=== PATIENT | female | born 1955 | race Caucasian/White ===

== ENCOUNTER 2019-09-18 06:35 | Outpatient (CLI) | payer BC, SELFPAY ==
--- NOTE | ~2019-09-18 | MR_ITS ---
EXAMINATION: MR cervical spine wo con EXAM DATE: 09/18/2019 07:52 INDICATION: Cervicalgia. TECHNIQUE: Multi-sequential, multiplanar MR images of the cervical spine were obtained without contra st. Axial T2, axial T2 MERGE sequence. Sagittal T1, T2, T2 fat saturation images also obtained. Com parison is made to prior examination from 12/27/2011. FINDINGS: Moderate to severe disc disease at C5-6 and C6-7, moderate at C7-T1, mild to moderate at C 3-4. The vertebral bodies are aligned in the AP dimension. There are no suspicious marrow signal abno rmalities. The spinal cord signal intensity and intrinsic morphology is normal. Cervicomedullary junc tion is normal in appearance. Paraspinal soft tissue is unremarkable. Level by level evaluation: C2-C3: Disc does not extend beyond the endplate margin. Uncovertebral joint arthropathy: None. Facet joint arthropathy: Moderate bilateral. Neural foraminal stenosis: No stenosis. Central canal stenosis: No stenosis. C3-C4: There is a minimal diffuse disc bulge. Uncovertebral joint arthropathy: Mild left. Facet joint arthropathy: Moderate left, mild to moderate right. Neural foraminal stenosis: No stenosis. Central canal stenosis: No stenosis. C4-C5: There is a mild diffuse disc bulge asymmetric to the left Uncovertebral joint arthropathy: Mild to moderate left, mild right. Facet joint arthropathy: Severe left, mild to moderate right. Neural foraminal stenosis: Moderate to severe left. Central canal stenosis: Mild. C5-C6: There is a mild to moderate diffuse disc bulge. Uncovertebral joint arthropathy: Moderate to severe right, moderate left. Facet joint arthropathy: Moderate bilateral. Neural foraminal stenosis: Moderate to severe bilateral. Central canal stenosis: Mild to moderate . Central canal measures 7 mm in mid sagittal AP diameter . C6-C7: There is a mild diffuse disc bulge. Uncovertebral joint arthropathy: Mild to moderate bilateral. Facet joint arthropathy: Mild to moderate right, mild left. Neural foraminal stenosis: Mild to moderate bilateral. Central canal stenosis: Mild. C7-T1: There is a mild diffuse disc bulge. Uncovertebral joint arthropathy: Moderate left, mild to moderate right. Facet joint arthropathy: Moderate right, mild left. Neural foraminal stenosis: Moderate bilateral. Central canal stenosis: Mild. Compared to 2011, there has been noticeable interval progression in spondylosis. IMPRESSION: 1. Moderate to severe cervical spondylosis. Reviewed, dictated and finalized at location B.
--- NOTE | ~2019-09-18 | XR_ITS ---
XR cervical spine min 6V 09/18/2019 07:02 Indication: Cervicalgia. Procedure: 6 view cervical spine including flexion/extension Comparison: No prior studies for comparison. Findings: There is disc narrowing at C5-6 and C6-7. Vertebral body heights are maintained. No acute f racture or traumatic malalignment. No significant alteration of alignment with flexion/extension. No prevertebral soft tissue swelling. There is multilevel facet and uncinate hypertrophy. Lung apices ar e normal. Odontoid process within normal limits. Impression: 1: Moderate cervical spondylosis. Reviewed, dictated and finalized at location A. Impression: 1: Moderate cervical spondylosis.
== END 2019-09-18 06:36 | disposition home or self-care (01) ==
PROVIDERS: PCP Physician Assistant; Visit Provider Nurse Practitioner Family
DX: M47.892 Other spondylosis, cervical region (principal)
CPT/HCPCS: 72052; 72141

== ENCOUNTER 2019-10-06 09:55 | Outpatient (CLI) | payer BC, SELFPAY ==
--- NOTE | 2019-10-06 | ECG_ITS ---
Measurements Intervals [place] Rate: 84 P: 77 [place]: 147 QRS: -3 QRSD: 84 T: 58 QT: 354 QTc: 419 Interpretive Statements SINUS RHYTHM POSSIBLE LEFT ATRIAL ENLARGEMENT INCOMPLETE RIGHT BUNDLE BRANCH BLOCK BASELINE ARTIFACT- I, III, AVR, AVL, AVF BORDERLINE ECG Electronically Signed On 10-06-2019 10:55:53 CDT by Corey Lorenz D.O.
[2019-10-06 10:25] LABS: Hematocrit 37.7 % (37.0-47.0); Hemoglobin 12.7 g/dL (12.0-15.0)
[2019-10-06 10:38] LABS: Albumin Level 3.8 g/dL (3.5-5.1); Estimated Glomerular Filt Rate > 60; Glucose 93 mg/dL (65-105)
[2019-10-06 10:45] LABS: Hemoglobin A1C 5.4 % (<5.7)
[2019-10-06 11:47] LABS: Urine Cotinine NEGATIVE
== END 2019-10-06 09:56 | disposition home or self-care (01) ==
PROVIDERS: PCP Physician Assistant; Visit Provider Orthopaedic Surgery
DX: Z01.818 Encounter for other preprocedural examination (principal); M17.11 Unilateral primary osteoarthritis, right knee; I45.10 Unspecified right bundle-branch block
CPT/HCPCS: 36415; 80307; 82040; 82565; 82947; 83036; 85014; 85018; 93005

== ENCOUNTER 2019-10-15 07:51 | Outpatient (CLI) | payer BC, SELFPAY ==
[2019-10-15 08:54] LABS: Basophils Absolute Auto 0.1 K/mm3 (0.0-0.1); Eosinophils Absolute Auto 0.5 K/mm3 (0-0.3); Eosinophils Percent Auto 9.3 % (0-4.4); Hematocrit 40.9 % (37.0-47.0); Hemoglobin 13.4 g/dL (12.0-15.0); Immature Granulocyte Absolute 0.02 K/mm3 (0.00-0.031); Immature Granulocyte Percent A 0.4 % (0-0.5); Lymphocytes Absolute Auto 1.19 K/mm3 (0.9-3.2); Lymphocytes Percent Auto 24.1 % (18.3-44.2); Mean Corpuscular HGB Conc 32.8 g/dl (32-36); Mean Corpuscular Hemoglobin 29.1 pg (26-34); Mean Corpuscular Volume 88.9 fl (80-100); Mean Platelet Volume 9.2 fl (7.4-10.4); Monocytes Absolute Auto 0.5 K/mm3 (0.1-0.6); Monocytes Percent Auto 9.5 % (2.6-8.5); Neutrophils Absolute Auto 2.8 K/mm3 (1.3-6.7); Neutrophils Percent Auto 55.7 % (45.5-73.1); Platelet Count Result 255 k/mm3 (150-375); Red Cell Distribution Width 12.8 % (11.5-14.5); White Blood Count 4.9 K/mm3 (4.5-10.0)
== END 2019-10-15 07:52 | disposition home or self-care (01) ==
LOC: ANHSURGERY 07:53
PROVIDERS: PCP Physician Assistant; Visit Provider Orthopaedic Surgery
DX: M17.11 Unilateral primary osteoarthritis, right knee (principal)
CPT/HCPCS: 36415; 85025; 87081

== ENCOUNTER 2019-11-13 02:05 | Outpatient (CLI) | payer BC, SELFPAY ==
[2019-11-13 18:23] LABS: SARS-CoV-2 RNA PCR Negative
== END 2019-11-13 02:06 | disposition home or self-care (01) ==
LOC: ANHCOVIDDT 02:06
PROVIDERS: PCP Physician Assistant; Visit Provider Orthopaedic Surgery
DX: Z01.812 Encounter for preprocedural laboratory examination (principal); Z20.828 Contact with and (suspected) exposure to other viral communicable diseases
CPT/HCPCS: 87635; C9803; U0003

== ENCOUNTER 2019-11-15 00:40 | Day surgery (SDC) | payer BC, SELFPAY ==
[2019-10-15 08:02] VITALS: BMI 23.3
[2019-10-15 08:42] VITALS: BP 142/82; PULSE 84; RESP 18; TEMP 36.7; O2SAT 100
--- NOTE | 2019-11-14 11:17 | WPDANESEPPF ---
Anes - Initial Pre Proc Eval Procedure: Operation Date: 11/15/19 07:30 Proposed Procedures p Right Total Knee Arthroplasty - Satnam Arango MD Date/Time: 11/14/19 11:17 Surgeon: Satnam Arango MD Pre Op Diagnosis: Right Knee OA Patient Data Age: 64 Gender: F Height: 1.6 m Weight: 59.6 kg Last Vital Signs Temp 36.7 C 10/15/19 08:42 Pulse 84 10/15/19 08:42 Resp 18 10/15/19 08:42 BP 142/82 H 10/15/19 08:42 Pulse Ox 100 10/15/19 08:42 Allergies Allergy/AdvReac Type Severity Reaction Status Date / Time Penicillins Allergy Severe THROAT Verified 11/15/19 06:20 SWELLING,RASH Home Medications Medication Instructions Recorded Confirmed Type buspirone 15 mg tablet 30 mg PO BID tablet 07/12/19 11/15/19 History cyclobenzaprine 10 mg tablet 5 mg PO TID tablet 07/12/19 11/15/19 History gabapentin 300 mg capsule 300 mg PO BID 07/12/19 11/15/19 History meloxicam 7.5 mg tablet 7.5 mg PO DAILY 07/12/19 11/15/19 History multivitamin 1 tablet PO DAILY 07/12/19 11/15/19 History pantoprazole 40 mg tablet,delayed 40 mg PO QAM #90 tablet 10/11/19 11/15/19 Rx release hydrocodone bitartrate [Zohydro ER] 10 mg PO Q12H 10/15/19 11/15/19 History montelukast [Singulair] 10 mg PO HS 10/15/19 11/15/19 History Patient hx anesthesia problems: none Family hx anesthesia problems: none PMFSH Past Medical History Medical History (Updated 11/14/19 @ 11:17 by Audie Queen DO) Anemia Anxiety Asthma Chronic, continuous use of opioids hydrocodone 10 years Depression GERD (gastroesophageal reflux disease) Hypercholesterolemia Insomnia Osteoarthrosis Social History Social History Smoking packs per day: 0.5 Smoking cigarettes per day: 10.0 Years smoked: 2 Smoking pack-years: 1.00 Smoking status: Former smoker Tobacco type: cigarettes Second hand tobacco smoke exposure: Yes (SIGNIFICANT OTHER) Smoking end date: 03/21/72 Additional smoking assessment comments: DENIES ANY FORM OF TOBACCO USE Alcohol intake: never Substance use: never Living arrangements: with family Spiritual care concerns: No Anes - Eval Final PreProcedure Day of Procedure 11/14/19 11:17 Patient weight: normal Heart: regular rate and rhythm Lungs: clear to auscultation and normal air movement Airway: Mallampati scale class II Neurological: alert and oriented Last oral intake: >/= 8 hours ASA classification: III Emergent: no Anesthetic plan: proceed Anesthesia type and monitoring: general GIVS and standard monitoring Informed Consent: The patient's anesthetic plan and its attendant risks and benefits were discussed with the patient/family/POA. Questions were solicited and answers provided to the satisfaction of the patient/family/POA.
--- NOTE | 2019-11-14 11:32 | WPDANESPNB ---
Anes - Peripheral Nerve Block Date/Time: 11/14/19 11:32 I have discussed with the patient/family/POA the placement of a peripheral nerve block for post-operative pain management, including associated risks, benefits, complications, and side effects. Alternative methods of post-operative analgesia were detailed. Questions were solicited and answers provided to the satisfaction of the patient/family/POA. Time-Out: A pre-procedural Time-Out was completed immediately before starting the procedure and confirmed: Patient Identification, Site, Procedure, Patient Position and the Availability of Requisite Equipment. Clinical Indications: Acute post-operative pain management requested by the operative surgeon. Nerve Block Insertion Note Anes-nerve block: adductor canal right Patient position: supine Skin prep: chlorhexidine Needle: 22 gauge, stimulating, insulated echogenic needle. Needle length: 80 mm Technique: ultrasound Injectate: bupivacaine 0.5% with epi 5 mcg/ml (30cc) Observations: tolerated well Complications: none Procedure start time:: 718 Procedure end time:: 721
[2019-11-15] VITALS (12 sets, daily range): BP systolic 100–143; BP diastolic 66–98; PULSE 74–98; RESP 12–18; TEMP 36.1–37.1; O2SAT 97–100
--- NOTE | ~2019-11-15 | XR_ITS ---
EXAMINATION: XR knee RT 2V DATE: 11/15/2019 10:03 INDICATION: Total right knee arthroplasty. Postop. TECHNIQUE: 2 views of right knee were obtained. COMPARISON: Right knee radiographs 09/08/2018 FINDINGS: There is a total right knee arthroplasty with patellar resurfacing. Tibia demonstrate 8 deg puma posterior angulation with respect to tibial component. No fracture. There is gas in the knee rita nt and soft tissues, consistent with recent surgery. IMPRESSION: 1. New total right knee arthroplasty. Reviewed, dictated and finalized at location B.
[2019-11-15] MEDS: ACETAMINOPHEN 500 MG TABLET 1000 MG PO (06:35)
[2019-11-15] MEDS: LACTATED RINGERS 1,000 ML 30 ML IV CONT ×2 (06:40→09:52)
[2019-11-15] MEDS: KETOROLAC 15 MG/ML VIAL (*BKC) IV PUSH (06:47)
[2019-11-15] MEDS: TRANEXAMIC ACID 1,000MG/ISO100 1,000 MG/100 ML BAG 200 MG IVPB (06:48)
--- NOTE | 2019-11-15 07:18 | WPDHPUPDATE1 ---
History and Physical Update Update Date/Time: 11/15/19 07:18 History and Physical has been reviewed, including an updated exam of the patient. There are NO changes in the patient's condition. Risks, benefits, and alternatives have been discussed and questions answered. Patient agrees to proceed with procedure.
[2019-11-15] MEDS: CLINDAMYCIN 900 MG/NS 50 ML 900 MG/50 ML PIGGYBACK 50 MG IVPB (07:35)
[2019-11-15] MEDS: ceFAZolin SODIUM 1 GM VIAL IV PUSH (08:03)
--- NOTE | 2019-11-15 09:42 | PM.PROC ---
Procedure Note - Detailed Date of procedure: 11/15/19 Pre-op diagnosis: Right Knee OA Post-op diagnosis: same Procedure performed: Total knee arthroplasty, right. Description of procedure: Sever patellofemoral disease. Patella thin, but adequate for resurfacing. Mild valgus deformity. Lateral release required including popliteus. Femur downsized 1.5 mm. 4 degree external rotation of the femur. 5 degree distal resection. Significant trochlea dysplasia. Implants: [employer] Triathlon size 2 press-fit femur, size 3 cemented low-profile tibia, 11 mm CR polyethylene insert, 32 mm asymmetric metal backed (Tritanium) patellar component. Anesthesia: GETA and regional (subsartorial nerve block) Surgeon: Satnam Arango MD Estimated blood loss (mL): 100 Tourniquet time (min): 18 Drains: No Pathology: none sent Complications: None Condition: stable Disposition: PACU Findings: OPERATIVE DETAILS: The patient was given a nerve block preoperatively, and then brought to the operating room. A general anesthetic was administered. The leg was prepped and draped in the usual sterile fashion. The limb was elevated and the tourniquet inflated to 300 mmHg during initial exposure, and cementation. A longitudinal incision was created along the medial border of the patella and patellar tendon, and a minimally invasive optimized mid-vastus approach to the knee was performed. No medial release was taken. The knee was then flexed. The osteophytes were carefully removed. The intramedullary guide was placed in the femoral canal. The distal femoral resection was then taken with the oscillating saw. The collateral ligaments were carefully protected. The tibia was carefully exposed. The jig was applied, and the proximal tibia was resected according to preoperative plan. The knee was balanced in extension. Appropriate releases were taken where needed. The anterior cruciate ligament and meniscal remnants were removed. The posterior cruciate ligament was preserved. The patella was measured. Patellar resection was carried out with the oscillating saw. The lug holes drilled. The femur was sized and rotation assessed using a combination of gap balancing, posterior referencing, and the AP axis. The 4 in 1 cutting block was used to finish the femoral cuts after equal gaps were assured. The lug holes were drilled. The osteophytes were carefully removed from the back of the knee. The knee was copiously irrigated with antibiotic solution periodically throughout the procedure. The meniscal remnants were removed. The spacer block was used to confirm equal flexion and extension gaps. Lateral release was performed. The tibia was sized and broached. The bony surfaces were prepared for cementing with pulsatile lavage. The real tibial component was cemented into position followed by press fitting the femoral component. Excess cement was carefully removed. The patella component was press-fit. Patellar tracking was carefully assessed. No additional releases were required. The wound was closed with #1 Vycril suture, #2 Quill suture, 0-Quill suture, and 2-0 Quill suture followed by Steri-Strips. A sterile bulky dressing was applied. Meticulous hemostasis was maintained throughout the procedure. There were no complications. The patient was extubated and brought to the recovery room in stable condition after the application of sterile dressing with Nba bandage.
--- NOTE | 2019-11-15 10:01 | SUR.PHASEI ---
1000 2 VIEWS OF XRAYS TAKEN OF RT KNEE.
[2019-11-15] MEDS: CYCLOBENZAPRINE HCL 5 MG TABLET PO ×2 (12:04→18:16)
--- NOTE | 2019-11-15 16:31 | PHAR ---
Home med verified: Hydrocodone 10mg ER Take 1 capsule by mouth Q12hr
[2019-11-15] MEDS: ASPIRIN 81 MG ENTERIC TABLET PO (18:15)
[2019-11-15] MEDS: busPIRone HCL 10 MG TABLET 30 MG PO (18:16)
[2019-11-15] MEDS: DOCUSATE SODIUM 100 MG CAPSULE PO (18:16)
[2019-11-15] MEDS: GABAPENTIN 300 MG CAPSULE PO (18:23)
[2019-11-15] MEDS: MONTELUKAST SODIUM 10 MG TABLET PO (21:25)
[2019-11-16] VITALS: BP 100/53; PULSE 74; RESP 18; TEMP 36.1; O2SAT 100
[2019-11-16 01:30] VITALS: BP 133/74; PULSE 79
[2019-11-16 04:55] VITALS: BP 122/70; PULSE 73; RESP 20; TEMP 36.1; O2SAT 100
[2019-11-16 05:54] LABS: Basophils Percent Auto 0.2 % (0.2-1.2); Eosinophils Absolute Auto 0.2 K/mm3 (0-0.3); Eosinophils Percent Auto 2.4 % (0-4.4); Hematocrit 31.9 % (37.0-47.0); Hemoglobin 10.5 g/dL (12.0-15.0); Immature Granulocyte Absolute 0.03 K/mm3 (0.00-0.031); Immature Granulocyte Percent A 0.4 % (0-0.5); Lymphocytes Absolute Auto 1.41 K/mm3 (0.9-3.2); Lymphocytes Percent Auto 16.7 % (18.3-44.2); Mean Corpuscular HGB Conc 32.9 g/dl (32-36); Mean Corpuscular Hemoglobin 29.5 pg (26-34); Mean Corpuscular Volume 89.6 fl (80-100); Mean Platelet Volume 9.4 fl (7.4-10.4); Monocytes Absolute Auto 0.7 K/mm3 (0.1-0.6); Monocytes Percent Auto 8.5 % (2.6-8.5); Neutrophils Absolute Auto 6.1 K/mm3 (1.3-6.7); Neutrophils Percent Auto 71.8 % (45.5-73.1); Platelet Count Result 223 k/mm3 (150-375); Red Blood Count 3.56 M/mm3 (4.2-5.4); Red Cell Distribution Width 13.1 % (11.5-14.5); White Blood Count 8.4 K/mm3 (4.5-10.0)
[2019-11-16 06:09] LABS: Anion Gap 4 mmol/L (8-16); Blood Urea Nitrogen 10 mg/dL (7-17); Calcium 8.5 mg/dL (8.4-10.2); Carbon Dioxide 25 mmol/L (22-30); Chloride 106 mmol/L (98-107); Estimated CRCL calculation 57 ml/min; Estimated Glomerular Filt Rate > 60; Glucose 100 mg/dL (65-105); Potassium 4.2 mmol/L (3.4-5.0); Sodium 135 mmol/L (137-145)
[2019-11-16] MEDS: GABAPENTIN 300 MG CAPSULE PO (08:16)
[2019-11-16] MEDS: DOCUSATE SODIUM 100 MG CAPSULE PO (08:16)
[2019-11-16] MEDS: CYCLOBENZAPRINE HCL 5 MG TABLET PO (08:16)
[2019-11-16] MEDS: busPIRone HCL 10 MG TABLET 30 MG PO (08:16)
[2019-11-16] MEDS: PANTOPRAZOLE 40 MG TABLET PO (09:28)
[2019-11-16] MEDS: MULTIVITAMINS THERAPEUTIC TAB (*BKC) 1 TABLET PO (09:28)
[2019-11-16] MEDS: MELOXICAM 7.5 MG TABLET PO (09:28)
[2019-11-16] MEDS: ASPIRIN 81 MG ENTERIC TABLET PO (09:28)
[2019-11-16 09:59] VITALS: BP 102/66; PULSE 78; RESP 16; TEMP 36.2; O2SAT 100
--- NOTE | 2019-11-16 10:09 | P.PNAN_ITS ---
Anes - Prog Note Post-Op Date/Time: 11/16/19 10:09 Cardiovascular status: normal Respiratory status: normal Airway patency: baseline Mental status: baseline Post-Op hydration status: normal Vital Signs: Last Vital Signs Temp 36.1 C L 11/16/19 04:55 Pulse 73 11/16/19 04:55 Resp 20 11/16/19 04:55 BP 122/70 11/16/19 04:55 Pulse Ox 100 11/16/19 04:55 I/O: Intake & Output 11/15/19 11/16/19 11/16/19 23:59 07:59 15:59 Intake Total 915 500 290 Output Total 300 1000 Balance 615 -500 290 Laboratory Tests 11/16/19 05:46 11/16/19 05:46 11/16/19 11/16/19 05:46 05:46 WBC 8.4 RBC 3.56 L Hgb 10.5 L Hct 31.9 L MCV 89.6 MCH 29.5 MCHC 32.9 RDW 13.1 Plt Count 223 MPV 9.4 Immature Gran % (Auto) 0.4 Neut % (Auto) 71.8 Lymph % (Auto) 16.[address] [place] % (Auto) 8.5 Eos % (Auto) 2.4 Baso % (Auto) 0.2 Lymph # (Auto) 1.41 [place] # (Auto) 0.7 H Eos # (Auto) 0.2 Baso # (Auto) 0.0 Abs Immat Gran (auto) 0.03 Absolute Neuts (auto) 6.1 Absolute Nucleated RBC 0.0 Nucleated RBC % 0.0 Sodium 135 L Potassium 4.2 Chloride 106 Carbon Dioxide 25 Anion Gap 4 L BUN 10 Creatinine 0.70 Estim Creat Clear Calc 57 Estimated GFR > 60 Glucose 100 Calcium 8.5 Post-procedural complaints: none Patient Feedback: Patient satisfied with anesthetic care.
== END 2019-11-16 11:07 | disposition home or self-care (01) ==
LOC: ANHSURGERY 06:05 → ANH2MED 11:00
PROVIDERS: PCP Physician Assistant; Visit Provider Orthopaedic Surgery
PROC: (CPT 27447; principal; 2019-11-15 07:30)
DX: M17.11 Unilateral primary osteoarthritis, right knee (principal); G89.18 Other acute postprocedural pain; F41.9 Anxiety disorder, unspecified; F32.9 Major depressive disorder, single episode, unspecified; K21.9 Gastro-esophageal reflux disease without esophagitis; E78.00 Pure hypercholesterolemia, unspecified; J45.909 Unspecified asthma, uncomplicated; Z79.891 Long term (current) use of opiate analgesic; Z79.899 Other long term (current) drug therapy; Z88.0 Allergy status to penicillin
CPT/HCPCS: 27447; 64447; 36415; 73560; 80048; 85025; 86850; 86900; 86901; 97110; 97116; 97161; 97165; 97530; A9270; C1713; C1776; J0131; J0171; J0690; J1100; J1885; J2250; J2270; J2405; J2704; J2795; J3010; J7120

== ENCOUNTER 2020-09-27 09:35 | Outpatient (CLI) | payer BC, SELFPAY ==
--- NOTE | 2020-09-27 | ECG_ITS ---
Measurements Intervals [place] Rate: 74 P: 68 [place]: 147 QRS: -10 QRSD: 81 T: 42 QT: 377 QTc: 420 Interpretive Statements SINUS RHYTHM POSSIBLE LEFT ATRIAL ENLARGEMENT INCOMPLETE RIGHT BUNDLE BRANCH BLOCK BORDERLINE ECG Electronically Signed On 09-27-2020 15:15:11 CDT by Corey Lorenz D.O.
[2020-09-27 10:14] LABS: Hematocrit 39.5 % (37.0-47.0); Hemoglobin 12.6 g/dL (12.0-15.0)
[2020-09-27 10:25] LABS: Albumin Level 4.2 g/dL (3.5-5.1); Estimated Glomerular Filt Rate > 60; Glucose 89 mg/dL (65-105)
[2020-09-27 10:27] LABS: Hemoglobin A1C 5.3 % (<5.7)
[2020-09-27 11:08] LABS: Urine Cotinine NEGATIVE
== END 2020-09-27 09:36 | disposition home or self-care (01) ==
LOC: ANHLAB 09:37
PROVIDERS: PCP Physician Assistant; Visit Provider Orthopaedic Surgery
DX: Z01.818 Encounter for other preprocedural examination (principal); M17.12 Unilateral primary osteoarthritis, left knee; K21.9 Gastro-esophageal reflux disease without esophagitis; D64.9 Anemia, unspecified; E78.00 Pure hypercholesterolemia, unspecified; G47.00 Insomnia, unspecified
CPT/HCPCS: 80307; 82040; 82565; 82947; 83036; 85014; 85018; 93005

== ENCOUNTER 2020-11-05 11:22 | Outpatient (CLI) | payer BC, SELFPAY ==
[2020-11-05 12:53] LABS: Basophils Percent Auto 0.6 % (0.2-1.2); Eosinophils Absolute Auto 0.3 K/mm3 (0-0.3); Eosinophils Percent Auto 6.5 % (0-4.4); Hematocrit 39.4 % (37.0-47.0); Hemoglobin 12.6 g/dL (12.0-15.0); Immature Granulocyte Absolute 0.01 K/mm3 (0.00-0.031); Immature Granulocyte Percent A 0.2 % (0-0.5); Lymphocytes Absolute Auto 1.18 K/mm3 (0.9-3.2); Lymphocytes Percent Auto 22.6 % (18.3-44.2); Mean Corpuscular Hemoglobin 28.9 pg (26-34); Mean Corpuscular Volume 90.4 fl (80-100); Monocytes Absolute Auto 0.4 K/mm3 (0.1-0.6); Monocytes Percent Auto 7.3 % (2.6-8.5); Neutrophils Absolute Auto 3.3 K/mm3 (1.3-6.7); Neutrophils Percent Auto 62.8 % (45.5-73.1); Platelet Count Result 245 k/mm3 (150-375); Red Blood Count 4.36 M/mm3 (4.2-5.4); Red Cell Distribution Width 13.5 % (11.5-14.5); White Blood Count 5.2 K/mm3 (4.5-10.0)
== END 2020-11-05 11:23 | disposition home or self-care (01) ==
PROVIDERS: PCP Physician Assistant; Visit Provider Orthopaedic Surgery
DX: M17.12 Unilateral primary osteoarthritis, left knee (principal); Z01.818 Encounter for other preprocedural examination
CPT/HCPCS: 36415; 85025; 87081

== ENCOUNTER 2020-11-11 09:59 | Outpatient (CLI) | payer BC, SELFPAY | END 2020-11-11 10:00 | disposition home or self-care (01) | LOC: ANHSURGERY 11-14 09:59 | PROVIDERS: PCP Physician Assistant; Visit Provider Orthopaedic Surgery | DX: M17.12 Unilateral primary osteoarthritis, left knee (principal); Z01.818 Encounter for other preprocedural examination | CPT/HCPCS: 87081 ==

== ENCOUNTER 2020-12-03 10:19 | Outpatient (CLI) | payer BC, SELFPAY ==
[2020-12-03 11:35] LABS: Urine Cotinine NEGATIVE
[2020-12-03 11:44] LABS: Albumin Level 4.3 g/dL (3.5-5.1); Estimated Glomerular Filt Rate > 60; Glucose 100 mg/dL (65-110)
== END 2020-12-03 10:20 | disposition home or self-care (01) ==
LOC: ANHSURGERY 10:21
PROVIDERS: PCP Physician Assistant; Visit Provider Orthopaedic Surgery
DX: M17.12 Unilateral primary osteoarthritis, left knee (principal); Z01.818 Encounter for other preprocedural examination
CPT/HCPCS: 80307; 82040; 82565; 82947; 86850; 86900; 86901

== ENCOUNTER 2020-12-09 01:31 | Day surgery (SDC) | payer BC, SELFPAY ==
[2020-11-05 11:44] VITALS: BP 146/77; PULSE 74; RESP 16; TEMP 37.3; O2SAT 100; BMI 23.8
--- NOTE | 2020-12-08 11:05 | WPDANESEPPF ---
Anes - Initial Pre Proc Eval Procedure: Operation Date: 12/09/20 07:30 Proposed Procedures p Left Total Knee Arthroplasty - Satnam Arango MD Date/Time: 12/08/20 11:05 Surgeon: Satnam Arango MD Pre Op Diagnosis: primary OA left knee Patient Data Age: 65 Gender: F Height: 1.57 m Weight: 59.1 kg Last Vital Signs Temp 37.3 C 11/05/20 11:44 Pulse 74 11/05/20 11:44 Resp 16 11/05/20 11:44 BP 146/77 H 11/05/20 11:44 Pulse Ox 100 11/05/20 11:44 Allergies Allergy/AdvReac Type Severity Reaction Status Date / Time Penicillins Allergy Severe THROAT Verified 12/09/20 06:23 SWELLING,RASH Home Medications Medication Instructions Recorded Confirmed Type cyclobenzaprine 10 mg tablet 10 mg PO TID tablet 07/12/19 12/09/20 History morphine 15 mg tablet,extended 15 mg PO Q12H 12/03/19 12/09/20 History release pantoprazole 40 mg tablet,delayed 40 mg PO QAM #90 tablet 04/09/20 12/09/20 Rx release aspirin [Adult Low Dose Aspirin] 81 mg PO DAILY 11/05/20 12/09/20 History buspirone 30 mg PO BID 11/05/20 12/09/20 History gabapentin 300 mg PO BID 11/05/20 12/09/20 History montelukast 10 mg PO DAILY 11/05/20 12/09/20 History mupirocin 1 applic TOPICAL TID 11/25/20 12/09/20 History Patient hx anesthesia problems: none Family hx anesthesia problems: none PMFSH Past Medical History Medical History Anemia Anxiety Asthma Chronic, continuous use of opioids hydrocodone 10 years Depression GERD (gastroesophageal reflux disease) Hypercholesterolemia Insomnia Osteoarthrosis Surgical History Surgical History History of total right knee replacement (~11/15/19) Family History Family History Mother Family history of diabetes mellitus in first degree relative, Onset Age: 64 Patient's mother is Diabetes mellitus Father Patient's father is Sibling Patient's brother is Social History Social History Smoking packs per day: 0.5 Smoking cigarettes per day: 10.0 Years smoked: 3 Smoking pack-years: 1.50 Tobacco type: cigarettes Second hand tobacco smoke exposure: Yes (SIGNIFICANT OTHER) Smoking end date: 09/18/72 Additional smoking assessment comments: DENIES ANY FORM OF TOBACCO USE Alcohol intake: former Alcohol use details: SOCIAL DRINKER 8-9 YEARS AGO Substance use: never Living arrangements: with family Additional living arrangements comments: S.O., GRANDCHILD, GREAT GRANDCHILD Gender identity (if verbalized by the patient): Female Spiritual care concerns: No Anes - Eval Final PreProcedure Day of Procedure 12/08/20 11:05 Patient weight: normal Heart: regular rate and rhythm Lungs: clear to auscultation and normal air movement Airway: Mallampati scale class II Neurological: alert and oriented Last oral intake: >/= 8 hours ASA classification: III Emergent: no Anesthetic plan: proceed Anesthesia type and monitoring: general LMA Informed Consent: The patient's anesthetic plan and its attendant risks and benefits were discussed with the patient/family/POA. Questions were solicited and answers provided to the satisfaction of the patient/family/POA.
[2020-12-09] VITALS (13 sets, daily range): BP systolic 107–136; BP diastolic 58–94; PULSE 68–87; RESP 10–18; TEMP 36.1–36.3; O2SAT 96–100; BMI 23.8
--- NOTE | ~2020-12-09 | XR_ITS ---
EXAMINATION: XR knee LT 2V DATE: 12/09/2020 10:08 CDT INDICATION: Left total knee arthroplasty TECHNIQUE: 2 views left knee FINDINGS: There is a left total knee arthroplasty in expected position. Subcutaneous gas with fluid and air in the joint are consistent with recent surgery. No evidence of periprosthetic fracture. IMPRESSION: 1. Recent left total knee arthroplasty. Reviewed, dictated and finalized at location A.
[2020-12-09] MEDS: ACETAMINOPHEN 500 MG TABLET 1000 MG PO (06:31)
[2020-12-09] MEDS: LACTATED RINGERS 1,000 ML 30 ML IV CONT ×2 (06:39→09:47)
[2020-12-09] MEDS: TRANEXAMIC ACID 1,000MG/ISO100 1,000 MG/100 ML BAG 200 MG IVPB (06:39)
--- NOTE | 2020-12-09 07:12 | WPDANESPNB ---
Anes - Peripheral Nerve Block Date/Time: 12/09/20 07:12 I have discussed with the patient/family/POA the placement of a peripheral nerve block for post-operative pain management, including associated risks, benefits, complications, and side effects. Alternative methods of post-operative analgesia were detailed. Questions were solicited and answers provided to the satisfaction of the patient/family/POA. Time-Out: A pre-procedural Time-Out was completed immediately before starting the procedure and confirmed: Patient Identification, Site, Procedure, Patient Position and the Availability of Requisite Equipment. Clinical Indications: Acute post-operative pain management requested by the operative surgeon. Nerve Block Insertion Note Anes-nerve block: adductor canal left Patient position: supine Skin prep: chlorhexidine Needle: 22 gauge, stimulating, insulated echogenic needle. Needle length: 80 mm Technique: ultrasound Technique comment: in plane Injectate: bupivacaine 0.5% with epi 5 mcg/ml (30cc) Observations: tolerated well Complications: none Procedure start time:: 725 Procedure end time:: 730
--- NOTE | 2020-12-09 07:23 | PM.HPGS ---
History of Present Illness History of Present Illness Consent: Risks, benefits, and alternatives have been discussed and questions answered. Patient agrees to proceed with procedure. Chief complaint: primary OA left knee Narrative: Asiya Vela is a 65 year old female complains of persistent left knee pain. The injections help minimally. The pain is quite severe and is limiting her daily function and ability to walk. Pain is constant and she has night pain. She has difficulty getting down on the floor and getting back up without severe pain. The right knee arthroplasty is doing very well. Review of Systems Review of Systems: All systems reviewed & are unremarkable except as noted in HPI and below PMFSH Past Medical History Medical History Anemia Anxiety Asthma Chronic, continuous use of opioids hydrocodone 10 years Depression GERD (gastroesophageal reflux disease) Hypercholesterolemia Insomnia Osteoarthrosis Surgical History Surgical History History of total right knee replacement (~11/15/19) Family History Family History Mother Family history of diabetes mellitus in first degree relative, Onset Age: 64 Patient's mother is Diabetes mellitus Father Patient's father is Sibling Patient's brother is Social History Social History Smoking packs per day: 0.5 Smoking cigarettes per day: 10.0 Years smoked: 3 Smoking pack-years: 1.50 Tobacco type: cigarettes Second hand tobacco smoke exposure: Yes (SIGNIFICANT OTHER) Smoking end date: 09/18/72 Additional smoking assessment comments: DENIES ANY FORM OF TOBACCO USE Alcohol intake: former Alcohol use details: SOCIAL DRINKER 8-9 YEARS AGO Substance use: never Living arrangements: with family Additional living arrangements comments: S.O., GRANDCHILD, GREAT GRANDCHILD Gender identity (if verbalized by the patient): Female Spiritual care concerns: No Meds Home Medications and Allergies Home Medications Medication Instructions Recorded Confirmed Type cyclobenzaprine 10 mg tablet 10 mg PO TID tablet 07/12/19 12/09/20 History morphine 15 mg tablet,extended 15 mg PO Q12H 12/03/19 12/09/20 History release pantoprazole 40 mg tablet,delayed 40 mg PO QAM #90 tablet 04/09/20 12/09/20 Rx release aspirin [Adult Low Dose Aspirin] 81 mg PO DAILY 11/05/20 12/09/20 History buspirone 30 mg PO BID 11/05/20 12/09/20 History gabapentin 300 mg PO BID 11/05/20 12/09/20 History montelukast 10 mg PO DAILY 11/05/20 12/09/20 History mupirocin 1 applic TOPICAL TID 11/25/20 12/09/20 History Allergies Allergy/AdvReac Type Severity Reaction Status Date / Time Penicillins Allergy Severe THROAT Verified 12/09/20 06:23 SWELLING,RASH Vital Signs Vital Signs - 24 hr 12/09/20 06:20 Temperature 36.1 C L Pulse Rate 73 Respiratory Rate 18 Blood Pressure 114/67 Pulse Oximetry 96 Exam Narrative: Alert and oriented. Normal weight. No distress. Slight limp. No deformity. Trace effusion. Mild synovitis. Diffuse joint line tenderness. No instability. No skin rash or lesion. Knee range of motion 0-145 degrees. No varicosities. No edema. Anterior tibialis strength normal. Hip exam benign. Assessment and Plan Assessment and plan (1) Primary osteoarthritis of left knee: Code(s): M17.12 - Unilateral primary osteoarthritis, left knee Status: Acute Assessment and Plan: Patient presents for pre-op visit for Left TKA. She has failed conservative treatments. Severe patellofemoral arthritis. Risks, benefits, and alternatives discussed. Proceed with left total knee arthroplasty.
--- NOTE | 2020-12-09 07:26 | WPDHPUPDATE1 ---
History and Physical Update Update Date/Time: 12/09/20 07:26 History and Physical has been reviewed, including an updated exam of the patient. There are NO changes in the patient's condition. Risks, benefits, and alternatives have been discussed and questions answered. Patient agrees to proceed with procedure.
[2020-12-09] MEDS: ceFAZolin 2 GM/D5W 50 ML 2 GM/50 ML BAG IVPB (07:33)
[2020-12-09] MEDS: GENTAMICIN BONE CEMENT REFOBACIN 1 EACH TOPICAL (09:05)
--- NOTE | 2020-12-09 10:15 | W.PM.PROC2 ---
Procedure Note - Detailed Date of Procedure 12/09/20 Pre-op Diagnosis primary OA left knee Post-op Diagnosis same Procedure Performed Left total knee arthroplasty. Surgeon Satnam Arango MD Shift Supervisor Rn Nadira Pinto PA-C Anesthesia general and regional Indications Severe patellofemoral arthritis. Findings Extensive patellofemoral erosion and arthritis as well as early medial and lateral compartment changes. ACL intact. Bone quality satisfactory. No significant releases required. Femur cut at 6? valgus. Description of Procedure The patient was given a nerve block preoperatively, and then brought to the operating room. A general anesthetic was administered. The leg was prepped and draped in the usual sterile fashion. The limb was elevated and the tourniquet inflated to 300 mmHg during initial exposure. A longitudinal incision was created along the medial border of the patella and patellar tendon, and a trivector approach to the knee was performed. No medial release was taken. The knee was then flexed. The osteophytes were carefully removed. The intramedullary guide was placed in the femoral canal. The distal femoral resection was then taken with the oscillating saw. The collateral ligaments were carefully protected. The tibia was carefully exposed. The jig was applied, and the proximal tibia was resected according to preoperative plan. The knee was balanced in extension. Appropriate releases were taken where needed. The anterior cruciate ligament and meniscal remnants were removed. The posterior cruciate ligament was preserved. The patella was measured. Patellar resection was carried out with the oscillating saw. The lug holes drilled. The femur was sized and rotation assessed using a combination of gap balancing, posterior referencing, and the AP axis. The 4 in 1 cutting block was used to finish the femoral cuts after equal gaps were assured. The lug holes were drilled. The osteophytes were carefully removed from the back of the knee. The knee was copiously irrigated with antibiotic solution periodically throughout the procedure. The meniscal remnants were removed. The spacer block was used to confirm equal flexion and extension gaps. Further releases were performed as needed. The tibia was sized and broached. The bony surfaces were prepared for cementing with pulsatile lavage. The real tibial component was cemented into position followed by press fitting the femoral component. Excess cement was carefully removed. The patella component was press-fit. Patellar tracking was carefully assessed. No additional releases were required. The wound was closed with #1 Vycril suture, #2 Quill suture, 0-Quill suture, and 2-0 Quill suture followed by Steri-Strips. A sterile bulky dressing was applied. Meticulous hemostasis was maintained throughout the procedure. Periarticular pain injection solution placed periodically throughout the procedure. AquaMantis device used. There were no complications. The patient was extubated and brought to the recovery room in stable condition after the application of sterile dressing with Nba bandage. Physician warehouse assistant, Nadira Fisher PA-C, required for surgery; including patient positioning, draping, tissue retraction, maintaining instrument position, cement removal, wound closure, and dressing placement. Implants [employer] Triathlon knee system, low profile cemented tibia size 3, press-fit femoral component size 3 ,and an 11 mm cruciate retaining polyethylene insert. 32mm asymmetric metal backed press-fit patella component. Estimated Blood Loss -100.0 Tourniquet Time 6 Drains No Pathology none sent Complications No immediate complications Condition stable Disposition PACU
--- NOTE | 2020-12-09 11:26 | SUR.PHASEII ---
1120- family member notified of pt being in outpt. PT notified and here to see pt. Lunch ordered. pt comfortable.
--- NOTE | 2020-12-09 14:04 | SUR.PHASEII ---
1355- waiting for ride to get here. pt dressed and waiting.
== END 2020-12-09 14:14 | disposition home or self-care (01) ==
PROVIDERS: PCP Physician Assistant; Visit Provider Orthopaedic Surgery
PROC: (CPT 27447; principal; 2020-12-09 07:30)
DX: M17.12 Unilateral primary osteoarthritis, left knee (principal); G89.18 Other acute postprocedural pain; E78.00 Pure hypercholesterolemia, unspecified; K21.9 Gastro-esophageal reflux disease without esophagitis; F41.8 Other specified anxiety disorders; J45.909 Unspecified asthma, uncomplicated; D64.9 Anemia, unspecified; Z79.82 Long term (current) use of aspirin; Z79.891 Long term (current) use of opiate analgesic; Z87.891 Personal history of nicotine dependence
CPT/HCPCS: 27447; 64447; 73560; 97110; 97161; A9270; C1713; C1776; J0171; J0690; J1100; J1170; J1885; J2250; J2270; J2370; J2405; J2704; J2795; J3010; J7120

== ENCOUNTER 2021-09-14 06:55 | Outpatient (CLI) | payer BC, SELFPAY ==
--- NOTE | ~2021-09-14 | MR_ITS ---
EXAMINATION: MR lumbar spine wo con DATE: 09/14/2021 07:30 INDICATION: Low back pain TECHNIQUE: Magnetic resonance imaging (MRI) of the lumbar spine was performed without intravenous con trast. Sequences included sagittal T2-weighted FSE, sagittal T2-weighted FS FSE, sagittal T1-weighted FSE, and axial T2-weighted FSE. COMPARISON: 08/06/2016 FINDINGS: 8 degree lumbar levocurvature. 1-2 mm retrolisthesis T12 on L1 and L1 on L2. Vertebral body heights a re normal. Small Schmorl's nodes along several endplates in the lower thoracic and mid and upper lumb ar spine. Mild fibrovascular endplate changes at a few levels in the lower thoracic and upper lumbar spine. Marrow signal is otherwise normal. Annular fissure and mild disc height loss at L4-L5. Disc de siccation without significant disc height loss at L2-L3 and L3-L4. Thoracic disc height loss, moderat e at T10-T11 and mild at T11-T12 and T12-L1. The conus medullaris terminates at L2. There is normal s ignal in the caudal spinal cord. Cholelithiasis. Mild right hydroureteronephrosis. Paravertebral soft tissues are unremarkable. The following disc levels are specifically discussed: T12-L1: Disc is bulging. There is mild bilateral facet joint osteoarthritis. There is mild left neura l foraminal stenosis. There is minimal central canal stenosis. L1-L2: Disc is bulging. There is mild hypertrophy of the ligamentum flavum. There is mild bilateral f acet joint osteoarthritis. There is mild bilateral neural foraminal stenosis. There is mild central c anal stenosis. L2-L3: Disc is bulging. There is mild hypertrophy of the ligamentum flavum. There is mild bilateral facet joint osteoarthritis. There is mild bilateral neural foraminal stenosis. There is mild central canal stenosis. L3-L4: Disc is bulging with superimposed left foraminal zone disc protrusion. There is mild hypertrop hy of the ligamentum flavum. There is moderate bilateral facet joint osteoarthritis. There is mild bi lateral neural foraminal stenosis. There is mild central canal stenosis. L4-L5: Disc is bulging with central annular fissure. There is hypertrophy of the ligamentum flavum. T here is severe bilateral facet joint osteoarthritis. There is mild to moderate bilateral neural lawrence inal stenosis. There is mild to moderate central canal stenosis. L5-S1: Disc is mildly bulging. There is severe bilateral facet joint osteoarthritis. There is mild bi lateral neural foraminal stenosis. There is no central canal stenosis. IMPRESSION: 1. Interval progression of now mild to moderate lumbar and lower thoracic spondylosis. Reviewed, dictated and finalized at location A. IMPRESSION: 1. Interval progression of now mild to moderate lumbar and lower thoracic spond ylosis.
== END 2021-09-14 06:56 ==
PROVIDERS: PCP Physician Assistant; Visit Provider Pain Medicine Pain Medicine
DX: M47.894 Other spondylosis, thoracic region (principal); M47.896 Other spondylosis, lumbar region
CPT/HCPCS: 72148

== ENCOUNTER 2024-05-09 09:43 | Outpatient (CLI) | payer BC, SELFPAY ==
--- NOTE | ~2024-05-09 | MR_ITS ---
MRI of the cervical spine Clinical History: Cervicalgia Technique: Axial T2-weighted and gradient images, and sagittal T1-weighted, T2-weighted, and STIR jeanine ges were acquired. Findings: There is no fracture or subluxation of the cervical spine. There is straightening of the no rmal cervical lordosis. No suspicious bone marrow signal abnormality seen. At C2-C3, there is no disc bulge or herniation. There is minimal facet arthropathy. No spinal canal s tenosis, cord compression, or neural foraminal narrowing. At C3-C4, there is no disc bulge or herniation. There is mild facet arthropathy. No melissa spinal luli l stenosis, cord compression, or neural foraminal narrowing. At C4-C5, there is left foraminal osteophyte formation with left facet arthropathy in particular, wit h severe left neural foraminal narrowing. Right neural foramen preserved. No melissa canal stenosis or cord compression. At C5-C6, there is advanced degenerative disc narrowing. There is mild canal stenosis without melissa c ord compression. There is bilateral neural foraminal narrowing, right worse than left. At C6-C7, there is advanced degenerative disc narrowing. There is borderline canal stenosis without f rank cord compression. Neural foramina are preserved. No abnormal signal seen in the spinal cord. Paravertebral soft tissues are unremarkable. Impression: Neural foraminal narrowing at C4-C5 and C5-C6, as detailed above. Reviewed, dictated and finalized at [facility]. T FURNACE OPERATOR Impression: Neural foraminal narrowing at C4-C5 and C5-C6, as detailed above.
== END 2024-05-09 09:44 | disposition home or self-care (01) ==
PROVIDERS: PCP Nurse Practitioner; Visit Provider Nurse Practitioner Family
DX: M54.2 Cervicalgia (principal)
CPT/HCPCS: 72141

== ENCOUNTER 2024-09-28 14:05 | Outpatient (CLI) | payer BC, SELFPAY ==
--- NOTE | ~2024-09-28 | DEXA_ITS ---
Bone Density Report Name: JUAN KIM Age: 69 Sex: Female Ethnicity: White Date of : 1955 Indication: postmenopausal; screening for osteoporosis; height loss; Referring Provider: MERLIN ODOM Study: Bone densitometry was performed. Exam Date: September 28, 2024 Accession number: [id number] Bone Density: Region BMD T-score Z-score Classification AP Spine(L1-L4) 0.950 -0.9 1.2 Normal Femoral Neck (Left) 0.501 -3.1 -1.3 Osteoporosis Total Hip (Left) 0.622 -2.6 -1.1 Osteoporosis Femoral Neck (Right) 0.495 -3.2 -1.4 Osteoporosis Total Hip (Right) 0.647 -2.4 -0.9 Osteopenia Total Hip Mean 0.634 -2.5 -1.0 Osteoporosis World Health Organization criteria for BMD impression classify patients as: Normal (T-score at or above -1.0), Osteopenia (T-score between -1.0 and -2.5), or Osteoporosis (T-score at or below -2.5). 10-year Fracture Risk: FRAX not reported because: Some T-score for Spine Total or Hip Total or Femoral Neck at or below -2.5 Clinical Information Provided by Patient: Patient maximum height was 63 Menopause Age: 47 No regular weight bearing exercise Does not regularly consume dairy products Onset of menses at age 12 Number of children 3 Impression: The patient has osteoporosis, based on the Right Femoral Neck T-score. Discussion: INCREASED RISK OF FRACTURE. BONE DENSITY IS UNDESIRABLY LOW AT ONE OR MORE SKELETAL SITES, CONSISTENT WITH POSTMENOPAUSAL OSTEOPOROSIS. This patient's lowest T-score meets the World Health Organization's (WHO) criteria for osteoporosis at one or more sites (T-score -2.5 or below). In untreated patients, the risk of osteoporotic fracture increases approximately two-fold for each 1.0 SD decrease in T-score. Low bone density is not the only risk factor for fracture; also consider factors such as patient's age, frailty or poor health, risk of falling, risk of injury, previous osteoporotic fracture, family history of osteoporosis, cigarette smoking, low body weight, etc. Not everyone with low bone mineral density has osteoporosis; osteomalacia and other metabolic bone disorders should also be considered. Patients who have osteoporosis should be evaluated for specific diseases and conditions (secondary causes) that may cause or contribute to bone loss. The [place] [employer]ocrin[employer] (AACE) and National Osteoporosis Foundation (NOF) recommend pharmacologic intervention for all postmenopausal women whose T-score is in this range. The patient should follow a healthful lifestyle (good nutrition with adequate calcium and vitamin D, and appropriate weight-bearing exercise). Follow-Up: Consider a repeat BMD and Vertebral Fracture Assessment (VFA) exam in 2 years or sooner if medically necessary, to reassess this patient's status. Reported by: EM on 09/28/2024 2:22:00 PM. Reviewed, dictated and finalized at location A.
== END 2024-09-28 14:06 | disposition home or self-care (01) ==
LOC: MICIMG 14:06
PROVIDERS: PCP Nurse Practitioner; Visit Provider Nurse Practitioner
DX: Z78.0 Asymptomatic menopausal state (principal); M81.0 Age-related osteoporosis without current pathological fracture; M85.851 Other specified disorders of bone density and structure, right thigh
CPT/HCPCS: 77080